=== PATIENT | male | born 1970 | race Two or more races ===

== ENCOUNTER 2021-03-10 20:10 | Emergency (ER) | payer MEDICAID, SELFPAY ==
[2021-03-10 21:16] VITALS: BP 111/67; PULSE 65; RESP 18; TEMP 37.1; O2SAT 99; BMI 28.2
[2021-03-10 21:49] LABS: Glucose Urine UA NEG (NEG); Leukocyte Esterase Urine NEG (NEG); Nitrite Urine NEG (NEG); Specific Gravity - Urine >= 1.030 (1.005-1.025); Urine Blood TRACE (NEG); Urine Ketones NEG (NEG); Urine Protein NEG (NEG-TRACE)
[2021-03-10 21:51] LABS: Appearance Urine CLEAR; Color Urine YELLOW
[2021-03-10 22:00] LABS: Mucus Urine 1+ /LPF; WBC Urine 0 /HPF (0-4)
--- NOTE | 2021-03-10 23:20 | ED.BACK ---
HPI - Back Pain/Injury General Chief Complaint: Back Pain/Injury Stated Complaint: back pain Time Seen by Provider: 03/10/21 23:20 Source: patient and family Mode of arrival: ambulatory Limitations: no limitations History of Present Illness HPI Narrative: Patient complained of lower back pain for last 4- 5 days no known injury no radiation of pain no motor weakness no bladder or bowel incontinence no urinary complaints patient never had any back problem before, no abdominal pain Related Data Previous Rx's Medication Instructions Recorded cyclobenzaprine 10 mg PO Q8H #20 tab 03/10/21 tramadol 50 mg PO Q6H PRN #20 tab 03/10/21 Allergies Allergy/AdvReac Type Severity Reaction Status Date / Time No Known Allergies Allergy Verified 03/10/21 21:16 Review of Systems Review of Systems: Constitutional : No Weight loss, No Fever, No Chills ENT/Mouth : No sore throat, No Rhinorrhea Eyes: No Eye Pain, No Swelling Cardiovascular : No Chest Pain, no palpitations Respiratory : No Cough, No Sputum, no shortness of breath Gastrointestinal : no Nausea, No Vomiting, No Diarrhea, No abdominal Pain, no black stools Genitourinary : No Dysuria, No Urinary Frequency Musculoskeletal : No joint pain, No Myalgias, No Joint Swelling Skin : No Skin Lesions, No rash Neuro : No Weakness, No Numbness, No Dizziness, No Headache Psych : No Anxiety/Panic, No Depression Heme/Lymph: No Bruising, No Lymphadenopathy Endocrine : No Polyuria, No Polydipsia All other systems reviewed and are negative PMFSH Past Medical History Medical History Patient denies medical problems Social History Social History Advance Directives: No Advance Directives Information Provided: No Physical Exam Vital Signs: Vital Signs: Last Vital Signs Temp 98.7 F 03/10/21 21:16 Pulse 80 03/11/21 00:02 Resp 16 03/11/21 00:02 BP 136/82 03/11/21 00:02 Pulse Ox 97 03/11/21 00:02 Body Mass Index 28.2 Const: General: healthy appearing and comfortable HENMT: Head: Yes normocephalic Eyes: General: appearance normal, both eyes and all related structures Resp: Effort & Inspection: normal respiratory effort Auscultation: clear to auscultation bilaterally Cardio: Palpation: normal PMI Rate: regular rate Rhythm: regular rhythm Heart sounds: S1 normal heart sound present and S2 normal heart sound present GI: Inspection: Yes normal to inspection Palpation (GI): Soft to palpation and nontender Percussion: Yes normal to percussion Auscultation: normal bowel sounds : General: Yes no CVA tenderness Back/Spine/Pelvis: Back: no CVA tenderness Thoracic/Lumbar Spine: thoraco-lumbar ROM normal, straight leg raise negative bilaterally, paraspinal muscle tenderness and lumbar spinal tenderness at L4 and at L5 Back/spine/pelvis image: 1. Diffuse tenderness and lowers lumbar area no percussion tenderness MDM - Back Pain/Injury Lab Data Attestation: I reviewed the patient's lab results. Labs: Lab Results 03/10/21 Range/Units 21:42 Urine Color YELLOW Urine Appearance CLEAR Urine pH 6.0 (5.0-8.0) Ur Specific [place] >= 1.030 H (1.005-1.025) Urine Protein NEG (NEG-TRACE) MG/DL Urine Glucose (UA) NEG (NEG) MG/DL Urine Ketones NEG (NEG) MG/DL Urine Blood TRACE (NEG) Urine Nitrite NEG (NEG) Ur Leukocyte Esterase NEG (NEG) Urine RBC 1-4 (0) /HPF Urine WBC 0 (0-4) /HPF Ur Squamous Epith Cells NONE /LPF Urine Bacteria NONE /LPF Urine Mucus 1+ /LPF Discharge Plan Discharge Clinical Impression: Strain of lumbar region Qualifiers: Encounter type: initial encounter Qualified Code(s): S39.012A - Strain of muscle, fascia and tendon of lower back, initial encounter Patient Disposition: Home, Self-Care Instructions: Low Back Strain (ED) Additional Instructions: Rest Pain medication and muscle relaxant as advised Prescriptions: New cyclobenzaprine 10 mg tablet 10 mg PO Q8H Qty: 20 RF: 0 tramadol 50 mg tablet 50 mg PO Q6H PRN (Reason: pain) Qty: 20 RF: 0 Interventions: ED Discharge Assessment Last Done: 03/11/21 00:05 Discharge Date/Time: 03/11/21 00:16
[2021-03-10] MEDS: traMADoL HCL 50 MG TABLET PO (23:57)
[2021-03-10] MEDS: Cyclobenzaprine HCl 10 MG TABLET PO (23:57)
[2021-03-11 00:02] VITALS: BP 136/82; PULSE 80; RESP 16; O2SAT 97
== END 2021-03-11 00:16 | disposition home or self-care (01) ==
LOC: HO.ED 23:40
PROVIDERS: Emergency Provider Internal Medicine
DX: S39.012A Strain of muscle, fascia and tendon of lower back, initial encounter (principal); X58.XXXA Exposure to other specified factors, initial encounter; Y93.9 Activity, unspecified; Y92.9 Unspecified place or not applicable; Y99.9 Unspecified external cause status; Z79.899 Other long term (current) drug therapy
CPT/HCPCS: 81001; 99284